=== PATIENT | female | born 1995 | race Caucasian/White ===

== ENCOUNTER 2018-12-22 10:27 | Inpatient (IN) | payer OTHER ==
[~2018-12-22] VITALS: Ht 167.6 cm; Wt 83.2 kg
--- NOTE | 2018-12-22 10:48 | HP ---
Date/Time of Note Date/Time of Note DATE: 12/22/18 TIME: 10:44 OB - History Hx of Present Free Text/Dictation 23 YO G1 with IUP at 34.2 weeks and EDC 01/31/2019. she reports contractions and vaginal bleeding. had intercourse last night. she denies LOF per vagina. NST is reassuring. Care: Good Care Ultrasounds: Normal mid trimester US Obstetrical Complications: None Medical Complications: None Past Family/Social History * Past Medical, Surgical, Family and Obstetric Histories reviewed from chart. OB Admission Exam Physical Exam HEENT: WNL Heart: Rhythm Normal Lungs: Clear, Equal Abdomen: WNL Extremities: Normal Reflexes: Normal OB Assessment/Plan Other Assessment: IUP at 34.2 weeks r/o PTL. no active bleeding on exam Other plan: admit for further observation no Tocolysis Betamethasone Amp GBS and urine culture SCD IV hydration BARON NOLASCO MD Dec 22, 2018 10:48
--- NOTE | 2018-12-22 10:48 | TRIAGE ---
OB Triage Datetime Report Generated by CPN: 12/22/2018 10:47 Datetime: 12/22/2018 10:41 Vaginal Exam Dilatation (cms): 2.0 Effacement (%): 60 Station: -2 Exam By: DR. NOLASCO Datetime: 12/22/2018 10:36 Stage of : OB Triage Assessment Type: Triage Maternal Assessment Level of Consciousness: Fully Conscious DTR's/Clonus: DTRs 2+; No Clonus Headache: Denies Blurred Vision: No Respiratory Effort: Unlabored; Regular Rhythm; Equal Expansion Breath Sounds, Left: Clear and Equal Breath Sounds, Right: Clear and Equal Nausea/Vomiting: Denies RUQ Epigastric Pain: Denies Lower Extremities Edema: None Degree: None Upper Extremities Edema: None Degree: None Facial Edema: None Temperature Route: Oral Fall Risk Assessment History of Falling: (0) No Secondary Diagnosis: (0) No Ambulatory Aid: (0) Bedrest/Nurse Assist IV Therapy: (0) No Gait: (0) Normal/Bedrest/Immobile Mental Status: (0) Oriented to Own Ability Fall Score: 0 Fall Risk Score Definition: No Risk: No action required Labor Evaluation Monitor Mode: External Heart Rate Monitor Mode: External US Pain Assessment Pain Scale: 4 Pain Presence: Intermittent Pain Type: Pressure Pain Location: Abdomen Pain Goal: 0 Datetime: 12/22/2018 10:35 Time of Arrival: 12/22/2018 10:23 EGA: 34.2 Arrived By: Ambulatory Arrived From: Home Chief Complaint: BLEEDING SPOTTING Movement: Present Contractions: Denies/Absent Rupture of Membranes: Denies Vaginal Bleeding: Scant Vaginal Discharge: Denies Recent Sexual Intercouse: Yes Abdominal Trauma: Not Applicable Patient Complaints: Other Time Provider Notified: 12/22/2018 10:45 Provider Notified: DR. NOLASCO
[2018-12-22 10:51] VITALS: BP 112/71; Ht 167.6 cm; Wt 83.2 kg
[2018-12-22] MEDS ORDERED: PREN1TAB71 PO (10:53)
[2018-12-22] MEDS ORDERED: AMPICILLIN 2 GM/NS (PMX) 100 ML IV ONE (11:00)
[2018-12-22] MEDS: LACTATED RINGER'S 1,000 ML IV SCH ×2 (13:06→21:08)
[2018-12-22] MEDS ORDERED: AMPICILLIN 1 GM/NS (PMX) 50 ML IV SCH (15:00)
[2018-12-22] MEDS: BETAMET NA PHOS/AC(6 MG/ML) 2 ML INJ SYG IM SCH (15:25)
[2018-12-22] MEDS: AMPICILLIN 1 GM/NS (PMX) 50 ML IV SCH (22:00)
[2018-12-23] MEDS: AMPICILLIN 1 GM/NS (PMX) 50 ML IV SCH ×6 (01:26→21:10)
[2018-12-23] MEDS: LACTATED RINGER'S 1,000 ML IV SCH ×3 (05:12→21:12)
[2018-12-23] MEDS ORDERED: PRENATAL VITAMIN PO SCH (09:00)
[2018-12-23] MEDS: BETAMET NA PHOS/AC(6 MG/ML) 2 ML INJ SYG IM SCH (15:40)
[2018-12-26] MEDS ORDERED: AMPICILLIN 2 GM/NS (PMX) 100 ML IVPB SCH (18:00)
== END 2018-12-23 22:00 | disposition home or self-care (01) | DRG 832 ==
LOC: OBT 10:27 → L-D 10:29 → OBT 10:45 → L-D 10:45
PROVIDERS: ADMIT Specialist; ATTEND Specialist
DX: O46.93 Antepartum hemorrhage, unspecified, third trimester (principal); O47.03 False labor before 37 completed weeks of gestation, third trimester; Z3A.34 34 weeks gestation of pregnancy
CPT/HCPCS: 76815; 80053; 81001; 85025; 87081; 87086; G0463; J0290; J0702; J7120

== ENCOUNTER 2018-12-26 10:21 | Inpatient (IN) | payer OTHER ==
[~2018-12-26] VITALS: Ht 167.6 cm; Wt 83.0 kg
[~2018-12-26 10:21] MED LIST: PREN1TAB71 PO
[2018-12-26 10:36] VITALS: BP 106/63; PULSE 113; RESP 18; Ht 167.6 cm; Wt 83.0 kg
--- NOTE | 2018-12-26 13:48 | TRIAGE ---
OB Triage Datetime Report Generated by CPN: 12/26/2018 13:47 Datetime: 12/26/2018 13:23 Stage of : OB Triage Datetime: 12/26/2018 12:06 Stage of : OB Triage Labor Evaluation Frequency: 4-5 Monitor Mode: External Duration (sec)2399: 60 Pattern: Normal: <= 5 Contractions in 10 Minutes Resting Tone [place]: Relaxed Heart Rate FHR Baseline Rate: 135 Variability: Moderate 6-25 bpm Accelerations: 15X15 Decelerations: None Category: Category I Pain Type: N/A Datetime: 12/26/2018 11:33 Stage of : OB Triage Labor Evaluation Frequency: 4-5 Monitor Mode: External Duration (sec)2399: 30-50 Pattern: Normal: <= 5 Contractions in 10 Minutes Resting Tone [place]: Relaxed Heart Rate FHR Baseline Rate: 135 Monitor Mode: External US Variability: Moderate 6-25 bpm Accelerations: 15X15 Decelerations: None Category: Category I Datetime: 12/26/2018 11:00 Labor Evaluation Frequency: 3-4 Monitor Mode: External Duration (sec)2399: 50-60 Quality: Mild Pattern: Normal: <= 5 Contractions in 10 Minutes Resting Tone [place]: Relaxed Heart Rate FHR Baseline Rate: 145 Monitor Mode: External US FHR Baseline Changes: No Baseline Change Variability: Moderate 6-25 bpm Accelerations: 15X15 Decelerations: None Category: Category I Datetime: 12/26/2018 10:58 Vaginal Exam Dilatation (cms): 2.0 Effacement (%): 60 Station: -2 Exam By: A DUVO Vaginal Bleeding: Scant Datetime: 12/26/2018 10:38 Assessment Type: Triage Maternal Assessment Level of Consciousness: Fully Conscious DTR's/Clonus: DTRs 2+; No Clonus Headache: Denies Blurred Vision: No Respiratory Effort: Unlabored; Regular Rhythm; Equal Expansion Breath Sounds, Left: Clear and Equal Breath Sounds, Right: Clear and Equal Nausea/Vomiting: Denies RUQ Epigastric Pain: Denies Lower Extremities Edema: None Upper Extremities Edema: None Facial Edema: None Fall Risk Assessment History of Falling: (0) No Secondary Diagnosis: (0) No Ambulatory Aid: (0) Bedrest/Nurse Assist IV Therapy: (0) No Gait: (0) Normal/Bedrest/Immobile Mental Status: (0) Oriented to Own Ability Fall Score: 0 Fall Risk Score Definition: No Risk: No action required Datetime: 12/26/2018 10:24 Time of Arrival: 12/26/2018 10:15 EGA: 34.6 Arrived By: Wheelchair Arrived From: Home Chief Complaint: vaginal bleeding Movement: Present Contractions: Denies/Absent Rupture of Membranes: Denies Vaginal Bleeding: Small Vaginal Discharge: Denies Recent Sexual Intercouse: Denies Abdominal Trauma: Not Applicable Patient Complaints: Other Time Provider Notified: 12/26/2018 10:47 Provider Notified: DR. JULIEN Initial Plan: NST BPP Datetime: 12/23/2018 22:10 Datetime: 12/23/2018 21:32 Vaginal Exam Dilatation (cms): 1.5 Exam By: Dr Julien Datetime: 12/23/2018 20:00 Labor Evaluation Frequency: 0 Monitor Mode: External Resting Tone [place]: Relaxed Heart Rate FHR Baseline Rate: 120 Monitor Mode: External US FHR Baseline Changes: No Baseline Change Variability: Moderate 6-25 bpm Accelerations: 15X15 Decelerations: None Category: Category I Datetime: 12/23/2018 19:28 Stage of : Antepartum Temperature Route: Oral Pain Assessment Pain Scale: 0 Pain Presence: None/Denies Pain Type: N/A Datetime: 12/23/2018 19:15 Assessment Type: Ongoing Assessment Maternal Assessment Level of Consciousness: Fully Conscious DTR's/Clonus: DTRs 2+; No Clonus Headache: Denies Blurred Vision: No Respiratory Effort: Unlabored; Regular Rhythm; Equal Expansion Breath Sounds, Left: Clear and Equal Breath Sounds, Right: Clear and Equal Nausea/Vomiting: Denies RUQ Epigastric Pain: Denies Lower Extremities Edema: None Upper Extremities Edema: None Facial Edema: None Fall Risk Assessment History of Falling: (0) No Secondary Diagnosis: (0) No Ambulatory Aid: (0) Bedrest/Nurse Assist IV Therapy: (20) Yes Gait: (0) Normal/Bedrest/Immobile Mental Status: (0) Oriented to Own Ability Fall Score: 20 Fall Risk Score Definition: No Risk: No action required Datetime: 12/23/2018 18:30 Monitor Mode: External Heart Rate FHR Baseline Rate: 125 Monitor Mode: External US FHR Baseline Changes: No Baseline Change Variability: Moderate 6-25 bpm Accelerations: 15X15 Decelerations: None Category: Category I Datetime: 12/23/2018 17:46 Comments: FHT audible at 145 BPM Datetime: 12/23/2018 17:00 Labor Evaluation Frequency: occasional X1 Monitor Mode: External Quality: Mild Pattern: Normal: <= 5 Contractions in 10 Minutes Resting Tone [place]: Relaxed Heart Rate FHR Baseline Rate: 130 Monitor Mode: External US FHR Baseline Changes: No Baseline Change Variability: Moderate 6-25 bpm Accelerations: 15X15 Decelerations: None Category: Category I Datetime: 12/23/2018 16:00 Monitor Mode: External Heart Rate FHR Baseline Rate: 125 Monitor Mode: External US FHR Baseline Changes: No Baseline Change Variability: Moderate 6-25 bpm Accelerations: 15X15 Decelerations: None Category: Category I Datetime: 12/23/2018 15:00 Labor Evaluation Frequency: occasional X1 Monitor Mode: External Duration (sec)2399: 80 Quality: Mild Pattern: Normal: <= 5 Contractions in 10 Minutes Resting Tone [place]: Relaxed Heart Rate FHR Baseline Rate: 130 Monitor Mode: External US FHR Baseline Changes: No Baseline Change Variability: Moderate 6-25 bpm Accelerations: 15X15 Decelerations: None Category: Category I Datetime: 12/23/2018 14:00 Labor Evaluation Frequency: 10 Monitor Mode: External Duration (sec)2399: 90-120 Quality: Mild Pattern: Normal: <= 5 Contractions in 10 Minutes Resting Tone [place]: Relaxed Heart Rate FHR Baseline Rate: 125 Monitor Mode: External US FHR Baseline Changes: No Baseline Change Variability: Moderate 6-25 bpm Accelerations: 15X15 Decelerations: None Category: Category I Datetime: 12/23/2018 13:00 Labor Evaluation Frequency: IRREGULAR X2 Monitor Mode: External Quality: Mild Pattern: Normal: <= 5 Contractions in 10 Minutes Resting Tone [place]: Relaxed Heart Rate FHR Baseline Rate: 130 Monitor Mode: External US FHR Baseline Changes: No Baseline Change Variability: Moderate 6-25 bpm Accelerations: 15X15 Decelerations: None Category: Category I Datetime: 12/23/2018 12:00 Monitor Mode: External Heart Rate FHR Baseline Rate: 120 Monitor Mode: External US FHR Baseline Changes: No Baseline Change Variability: Moderate 6-25 bpm Accelerations: 10X10 Decelerations: None Category: Category I Datetime: 12/23/2018 11:00 Monitor Mode: External Heart Rate FHR Baseline Rate: 115 Monitor Mode: External US FHR Baseline Changes: No Baseline Change Variability: Moderate 6-25 bpm Accelerations: 15X15 Decelerations: None Category: Category I Datetime: 12/23/2018 10:00 Labor Evaluation Frequency: irregular Monitor Mode: External Quality: Mild Pattern: Normal: <= 5 Contractions in 10 Minutes Resting Tone [place]: Relaxed Contraction Comments: pt feels UCs, notes only a couple felt Heart Rate FHR Baseline Rate: 135 Monitor Mode: External US FHR Baseline Changes: No Baseline Change Variability: Moderate 6-25 bpm Accelerations: 15X15 Decelerations: None Category: Category I Datetime: 12/23/2018 09:00 Monitor Mode: External Quality: Mild Pattern: Normal: <= 5 Contractions in 10 Minutes Resting Tone [place]: Relaxed Heart Rate FHR Baseline Rate: 125 Monitor Mode: External US FHR Baseline Changes: No Baseline Change Variability: Moderate 6-25 bpm Accelerations: 15X15 Decelerations: None Category: Category I Datetime: 12/23/2018 08:00 Monitor Mode: External Heart Rate FHR Baseline Rate: 115 Monitor Mode: External US FHR Baseline Changes: No Baseline Change Variability: Moderate 6-25 bpm Accelerations: 15X15 Decelerations: None Category: Category I Datetime: 12/23/2018 07:21 Stage of : Antepartum Datetime: 12/23/2018 07:17 Assessment Type: Ongoing Assessment Maternal Assessment Level of Consciousness: Fully Conscious DTR's/Clonus: DTRs 2+; No Clonus Headache: Denies Blurred Vision: No Respiratory Effort: Unlabored; Regular Rhythm; Equal Expansion Breath Sounds, Left: Clear and Equal Breath Sounds, Right: Clear and Equal Nausea/Vomiting: Denies RUQ Epigastric Pain: Denies Lower Extremities Edema: None Upper Extremities Edema: None Facial Edema: None Fall Risk Assessment History of Falling: (0) No Secondary Diagnosis: (0) No Ambulatory Aid: (0) Bedrest/Nurse Assist IV Therapy: (20) Yes Gait: (0) Normal/Bedrest/Immobile Mental Status: (0) Oriented to Own Ability Fall Score: 20 Fall Risk Score Definition: No Risk: No action required Datetime: 12/23/2018 06:58 Labor Evaluation Frequency: X1 Monitor Mode: External Duration (sec)2399: 50 Quality: Mild Resting Tone [place]: Relaxed Heart Rate FHR Baseline Rate: 120 Monitor Mode: External US Variability: Moderate 6-25 bpm Accelerations: 15X15 Decelerations: None Category: Category I Pain Presence: None/Denies Pain Type: N/A Datetime: 12/23/2018 06:15 Stage of : Antepartum Datetime: 12/23/2018 06:01 Stage of : Antepartum Temperature Route: Oral Datetime: 12/23/2018 06:00 Labor Evaluation Frequency: X5 Monitor Mode: External Duration (sec)2399: 50-90 Quality: Mild Resting Tone [place]: Relaxed Heart Rate FHR Baseline Rate: 120 Monitor Mode: External US Variability: Moderate 6-25 bpm Accelerations: 15X15 Decelerations: None Category: Category I Pain Presence: None/Denies Pain Type: N/A Pain Assessment Comments: PT DENIES ANY CRAMPING Datetime: 12/23/2018 05:12 Stage of : Antepartum Datetime: 12/23/2018 05:00 Labor Evaluation Frequency: X3 Monitor Mode: External Duration (sec)2399: 50-60 Quality: Mild Resting Tone [place]: Relaxed Contraction Comments: PT DENIES CRAMPING Heart Rate FHR Baseline Rate: 120 Monitor Mode: External US Variability: Moderate 6-25 bpm Accelerations: 15X15 Decelerations: None Category: Category I Pain Presence: None/Denies Pain Type: N/A Pain Assessment Comments: PT SLEEPING BUT EASILY AROUSED Datetime: 12/23/2018 04:18 Monitor Mode: External US Datetime: 12/23/2018 04:00 Labor Evaluation Frequency: X3 Monitor Mode: External Duration (sec)2399: 40-130 Quality: Mild Resting Tone [place]: Relaxed Heart Rate FHR Baseline Rate: 125 Monitor Mode: External US Variability: Moderate 6-25 bpm Accelerations: None Decelerations: None Category: Category I Pain Presence: None/Denies Pain Type: N/A Datetime: 12/23/2018 03:00 Labor Evaluation Frequency: NONE Monitor Mode: External Resting Tone [place]: Relaxed Heart Rate FHR Baseline Rate: 120 Monitor Mode: External US Variability: Moderate 6-25 bpm Accelerations: 15X15 Decelerations: None Category: Category I Pain Presence: None/Denies Pain Type: N/A Pain Assessment Comments: PT SLEEPING WITH EVEN UNLABORED BREATHING Datetime: 12/23/2018 02:00 Labor Evaluation Frequency: X5 Monitor Mode: External Duration (sec)2399: 70-130 Quality: Mild Resting Tone [place]: Relaxed Contraction Comments: PT DENIES FEELING UC'S Heart Rate FHR Baseline Rate: 120 Monitor Mode: External US Variability: Moderate 6-25 bpm Accelerations: 15X15 Decelerations: None Category: Category I Pain Presence: None/Denies Pain Type: N/A Datetime: 12/23/2018 01:26 Stage of : Antepartum Datetime: 12/23/2018 01:00 Labor Evaluation Frequency: X2 Monitor Mode: External Duration (sec)2399: 60 Quality: Mild Resting Tone [place]: Relaxed Heart Rate FHR Baseline Rate: 125 Variability: Moderate 6-25 bpm Comments: POOR QUlity trCING DUE TO PT'S SLEEPING POSITION AND ACTIVE FETUS. TRACING UNREADABLY. Datetime: 12/23/2018 00:35 Stage of : Antepartum Temperature Route: Oral Datetime: 12/23/2018 00:30 Monitor Mode: External US Comments: VERY ACTIVE FETUS Datetime: 12/23/2018 00:29 Comments: MONITORS STRAPS REMOVED AND BELLY BAND PLACED ON PT Datetime: 12/23/2018 00:00 Labor Evaluation Frequency: NONE Monitor Mode: External Resting Tone [place]: Relaxed Heart Rate FHR Baseline Rate: 125 Monitor Mode: External US Variability: Moderate 6-25 bpm Accelerations: 15X15 Decelerations: None Category: Category I Pain Presence: None/Denies Pain Type: N/A Datetime: 12/22/2018 23:00 Labor Evaluation Frequency: NONE Monitor Mode: External Resting Tone [place]: Relaxed Heart Rate FHR Baseline Rate: 125 Monitor Mode: External US Variability: Moderate 6-25 bpm Comments: LOC WITH PT SLEEPING ON HER RIGHT SIDE AND ACTIVE FETUS Pain Presence: None/Denies Pain Type: N/A Datetime: 12/22/2018 22:00 Labor Evaluation Frequency: NONE Monitor Mode: External Resting Tone [place]: Relaxed Heart Rate FHR Baseline Rate: 130 Monitor Mode: External US Variability: Moderate 6-25 bpm Accelerations: 15X15 Decelerations: None Category: Category I Pain Presence: None/Denies Pain Type: N/A Datetime: 12/22/2018 21:00 Labor Evaluation Frequency: NONE Monitor Mode: External Quality: Mild Resting Tone [place]: Relaxed Heart Rate FHR Baseline Rate: 135 Monitor Mode: External US Variability: Moderate 6-25 bpm Accelerations: 15X15 Decelerations: None Category: Category I Pain Presence: None/Denies Pain Type: N/A Datetime: 12/22/2018 20:00 Labor Evaluation Frequency: NONE Monitor Mode: External Resting Tone [place]: Relaxed Heart Rate FHR Baseline Rate: 130 Monitor Mode: External US Variability: Moderate 6-25 bpm Accelerations: 15X15 Decelerations: None Category: Category I Pain Presence: None/Denies Pain Type: N/A Datetime: 12/22/2018 19:17 Stage of : Antepartum Assessment Type: Ongoing Assessment Maternal Assessment Level of Consciousness: Fully Conscious DTR's/Clonus: DTRs 2+; No Clonus Headache: Denies Blurred Vision: No Respiratory Effort: Unlabored; Regular Rhythm; Equal Expansion Breath Sounds, Left: Clear and Equal Breath Sounds, Right: Clear and Equal Nausea/Vomiting: Denies RUQ Epigastric Pain: Denies Lower Extremities Edema: None Degree: None Upper Extremities Edema: None Degree: None Facial Edema: None Temperature Route: Oral Fall Risk Assessment History of Falling: (0) No Secondary Diagnosis: (0) No Ambulatory Aid: (0) Bedrest/Nurse Assist IV Therapy: (0) No Gait: (0) Normal/Bedrest/Immobile Mental Status: (0) Oriented to Own Ability Fall Score: 0 Fall Risk Score Definition: No Risk: No action required Monitor Mode: External Contraction Comments: PT STATES SHE FEELS A LITTLE CRAMPING Monitor Mode: External US Comments: PT STATES + FM Pain Assessment Pain Scale: 4 Pain Presence: Intermittent Pain Type: Cramping Pain Goal: 2 Pain Relief Measures: Comfort Measures (Annotations: REPOSITIONED) Membrane Status: Intact Vaginal Bleeding: None Datetime: 12/22/2018 19:13 Stage of : Antepartum Labor Evaluation Frequency: occassional Monitor Mode: External Quality: Mild Pattern: Normal: <= 5 Contractions in 10 Minutes Resting Tone [place]: Relaxed Heart Rate FHR Baseline Rate: 135 Monitor Mode: External US FHR Baseline Changes: No Baseline Change Variability: Moderate 6-25 bpm Accelerations: 15X15 Decelerations: None Datetime: 12/22/2018 18:25 Stage of : Antepartum Labor Evaluation Frequency: occassional Monitor Mode: External Quality: Mild Pattern: Normal: <= 5 Contractions in 10 Minutes Resting Tone [place]: Relaxed Heart Rate FHR Baseline Rate: 135 Monitor Mode: External US FHR Baseline Changes: No Baseline Change Variability: Moderate 6-25 bpm Accelerations: 15X15 Decelerations: None Category: Category I Pain Assessment Comments: no c/o of pain at this time Datetime: 12/22/2018 17:20 Stage of : Antepartum Labor Evaluation Frequency: occassional Monitor Mode: External Quality: Mild Pattern: Normal: <= 5 Contractions in 10 Minutes Resting Tone [place]: Relaxed Heart Rate FHR Baseline Rate: 125 Monitor Mode: External US FHR Baseline Changes: No Baseline Change Variability: Moderate 6-25 bpm Accelerations: 15X15 Decelerations: None Datetime: 12/22/2018 16:20 Stage of : Antepartum Labor Evaluation Frequency: occassional Monitor Mode: External Quality: Mild Pattern: Normal: <= 5 Contractions in 10 Minutes Resting Tone [place]: Relaxed Heart Rate FHR Baseline Rate: 125 Monitor Mode: External US FHR Baseline Changes: No Baseline Change Variability: Moderate 6-25 bpm Accelerations: 15X15 Decelerations: None Category: Category I Pain Assessment Pain Scale: 4 Pain Presence: Intermittent Pain Type: Cramping Pain Assessment Comments: pt sitting comfortably with no needs at this time Datetime: 12/22/2018 15:20 Stage of : Antepartum Labor Evaluation Frequency: occassional Monitor Mode: External Duration (sec)2399: 60-80 Quality: Mild Pattern: Normal: <= 5 Contractions in 10 Minutes Resting Tone [place]: Relaxed Heart Rate FHR Baseline Rate: 130 Monitor Mode: External US FHR Baseline Changes: No Baseline Change Variability: Moderate 6-25 bpm Accelerations: 15X15 Decelerations: None Category: Category I Datetime: 12/22/2018 14:20 Stage of : Antepartum Labor Evaluation Frequency: occassional Monitor Mode: External Duration (sec)2399: 60-80 Quality: Mild Pattern: Normal: <= 5 Contractions in 10 Minutes Resting Tone [place]: Relaxed Heart Rate FHR Baseline Rate: 125 Monitor Mode: External US FHR Baseline Changes: No Baseline Change Variability: Moderate 6-25 bpm Accelerations: 15X15 Decelerations: None Category: Category I Pain Assessment Comments: no c/o of pain at this time Datetime: 12/22/2018 13:20 Stage of : Antepartum Labor Evaluation Frequency: occassional Monitor Mode: External Duration (sec)2399: 60-80 Quality: Mild Pattern: Normal: <= 5 Contractions in 10 Minutes Resting Tone [place]: Relaxed Heart Rate FHR Baseline Rate: 125 Monitor Mode: External US FHR Baseline Changes: No Baseline Change Variability: Moderate 6-25 bpm Accelerations: 15X15 Decelerations: None Category: Category I Datetime: 12/22/2018 12:20 Stage of : Antepartum Labor Evaluation Frequency: 5-13 Monitor Mode: External Duration (sec)2399: 60-80 Quality: Mild Pattern: Normal: <= 5 Contractions in 10 Minutes Resting Tone [place]: Relaxed Heart Rate FHR Baseline Rate: 130 Monitor Mode: External US Variability: Moderate 6-25 bpm Accelerations: None Decelerations: None Category: Category I Datetime: 12/22/2018 11:21 Stage of : Antepartum Assessment Type: Admission Assessment Arrived By: Ambulatory Arrived From: Home Maternal Assessment Level of Consciousness: Fully Conscious DTR's/Clonus: DTRs 2+; No Clonus Headache: Denies Blurred Vision: No Respiratory Effort: Unlabored; Regular Rhythm; Equal Expansion Breath Sounds, Left: Clear and Equal Breath Sounds, Right: Clear and Equal Nausea/Vomiting: Denies RUQ Epigastric Pain: Denies Lower Extremities Edema: None Degree: None Upper Extremities Edema: None Degree: None Facial Edema: None Temperature Route: Oral Fall Risk Assessment History of Falling: (0) No Secondary Diagnosis: (0) No Ambulatory Aid: (0) Bedrest/Nurse Assist IV Therapy: (0) No Gait: (0) Normal/Bedrest/Immobile Mental Status: (0) Oriented to Own Ability Fall Score: 0 Fall Risk Score Definition: No Risk: No action required Monitor Mode: External Monitor Mode: External US Pain Assessment Pain Scale: 4 Pain Presence: Intermittent Pain Type: Cramping Pain Location: Abdomen Pain Goal: 0 Datetime: 12/22/2018 10:59 Comments: off monitor Datetime: 12/22/2018 10:36 Fall Score: 0 Fall Risk Score Definition: No Risk: No action required Datetime: 12/22/2018 10:35 EGA: 34.2
[2018-12-26] MEDS ORDERED: AMPICILLIN 2 GM/NS (PMX) 100 ML IV ONE (14:00)
[2018-12-26] MEDS ORDERED: CARBOPROST 250 MCG INJ IM PRN (14:00)
[2018-12-26] MEDS ORDERED: METHYLERGONOVINE 0.2 MG INJ IM PRN (14:00)
[2018-12-26] MEDS ORDERED: OXYTOCIN 30 UNITS/LR 500 ML IV PRN (14:00)
[2018-12-26] MEDS ORDERED: LIDOCAINE 1% (MPF) 30 ML INJ INJ PRN (14:00)
[2018-12-26] MEDS ORDERED: OXYTOCIN 30 UNITS/LR 500 ML IV SCH ×2 (14:00)
[2018-12-26] MEDS ORDERED: MISOPROSTOL 200 MCG TAB PR PRN (14:00)
[2018-12-26] MEDS: LACTATED RINGER'S 1,000 ML IV SCH (14:29)
--- NOTE | 2018-12-26 15:16 | HP ---
Date/Time of Note Date/Time of Note DATE: 12/26/18 TIME: 15:12 OB - History Hx of Present Free Text/Dictation December 26, 2018 Estimated Due Date: Feb 28, 2019 : 1 Para: 0 Therapeutic : 0 Other Concerns: 23-year-old G1, P0 with IUP at 34 weeks and 6 days and care with [facility] she presented with complaint of vaginal bleeding and cramps. Patient had recently admitted to the hospital and was discharged due to labor. She presented previously with vaginal bleeding and was noted to be 2 cm dilated. Status post full course of steroid. Completed steroids 3 days ago and discharged from the hospital. Symptoms recurred. She denies decreased movements or leaking of fluid. course was uncomplicated. Past Family/Social History * Past Medical, Surgical, Family and Obstetric Histories reviewed from chart. Blood Type: AB- Rubella: immune RPR/VDRL: Negative GBS Status: Unknown HBsAG: Negative OB Admission Exam Vital Signs Vital Signs Vital Signs Date Temp Pulse Resp B/P (MAP) Pulse Ox O2 O2 Flow FiO2 Time Delivery Rate 12/26/18 98.1 113 18 106/63 Room Air 10:36 (77) Physical Exam HEENT: WNL Lungs: Clear Abdomen: WNL Extremities: Normal Reflexes: Normal Cervical Dilatation: 2cm Membranes: Intact Heart Rate: 130's Accelerations: Accelerations Present Decelerations: Variable Decelerations Varibility: Moderate Contractions on Admission: < 5 Minutes Apart Intensity: Mild Last 72 hourBlood Glucose PROCEDURE: US OB biophysical profile. CLINICAL INDICATION: decreased movements, contractions TECHNIQUE: Multiple sonographic images of the pelvis were obtained. The images were reviewed on a PACS workstation. COMPARISON: No prior studies are available for comparison. FINDINGS: There is a single live intrauterine gestation. Cardiac activity is present with 137 beats per minute. There is a vertex presentation. The placenta is posterior. There is no evidence of placental abruption. JT = 17.9 cm. Biophysical profile: movement 2/2 tone 2/2. breathing 2/2 JT 2/2 Total 02/27 RPTAT: AA . IMPRESSION: Normal biophysical profile. . OB Assessment/Plan Other Assessment: IUP at 34 weeks and 6 days Vaginal bleeding and cramps Cannot rule out labor Admitted last week with the same symptoms status post observation and received 2 dose of steroid. Recently discharged from the hospital. 2 cm dilated and has cramps Cannot rule out labor. GBS unknown, vertex presentation Patient will be admitted for observation and close monitoring Consider GBS prophylaxis treatment We will continue monitor closely. No indication for tocolysis if she goes to labor Expectant management Plan of care discussed with patient ALLISON TURNER MD Dec 26, 2018 15:16
[2018-12-26] MEDS ORDERED: AMPICILLIN 1 GM/NS (PMX) 50 ML IV SCH (18:00)
[2018-12-26] MEDS: AMPICILLIN 2 GM/NS (PMX) 100 ML IVPB SCH (18:02)
[2018-12-27] MEDS: AMPICILLIN 2 GM/NS (PMX) 100 ML IVPB SCH ×4 (00:14→19:22)
[2018-12-27] MEDS: LACTATED RINGER'S 1,000 ML IV SCH ×4 (02:09→22:25)
--- NOTE | 2018-12-27 16:57 | QN ---
Documentation Comment she continued to have intermittent vaginal bleeding she denies painful contraction or LOF per vagina. she reports good FM Afebrile, VSS Abdomen is soft, not tender cervix is 2-3 cm, some BBOW NST is category one Assessment: IUP at 35 weeks Vaginal bleeding may be to labor Vs. placenta separation. Plan: will not use tocolytic observation BARON NOLASCO MD Dec 27, 2018 16:56
[2018-12-28] MEDS: AMPICILLIN 2 GM/NS (PMX) 100 ML IVPB SCH ×4 (01:12→19:50)
[2018-12-28] MEDS: LACTATED RINGER'S 1,000 ML IV SCH ×3 (08:28→20:55)
--- NOTE | 2018-12-28 15:55 | QN ---
Documentation Comment 23-year-old 1 para 0 at 35 weeks and 1 day of gestation with estimated date of delivery January 31, 2019 She was admitted for labor and vaginal bleeding Patient has received betamethasone x2 doses for lung maturity She currently complains of some pelvic pressure with pain level of 5 out of 10 and intermittent vaginal spotting Vital signs stable VS - Last 72 Hours, by Label Date Temp Pulse Resp B/P (MAP) Pulse Ox O2 O2 Flow FiO2 Time Delivery Rate 12/26/18 98.1 113 18 106/63 Room Air 10:36 (77) heart rate tracing category 1 Cervix 2-3 cm/70%/-1 per nurse PROCEDURE: US OB biophysical profile. CLINICAL INDICATION: decreased movements, contractions TECHNIQUE: Multiple sonographic images of the pelvis were obtained. The images were reviewed on a PACS workstation. COMPARISON: No prior studies are available for comparison. FINDINGS: There is a single live intrauterine gestation. Cardiac activity is present with 137 beats per minute. There is a vertex presentation. The placenta is posterior. There is no evidence of placental abruption. JT = 17.9 cm. Biophysical profile: movement 2/2 tone 2/2. breathing 2/2 JT 2/2 Total 02/27 RPTAT: AA . IMPRESSION: Normal biophysical profile. . .Zeyad Medeiros MD, Date Time Electronically viewed and signed by .Zeyad Medeiros MD, on 12/26/2018 11:26 .S/ CC: BARON NOLASCO MD [phone] Assessment and plan Continuous observation Continuous monitoring ISABELLE FARMER MD Dec 28, 2018 15:55
[2018-12-28] MEDS: ACETAMINOPHEN 325 MG TAB PO PRN (18:10)
--- NOTE | 2018-12-28 19:47 | PN ---
Date/Time of Note Date/Time of Note DATE: 12/28/18 TIME: 19:45 OB Subjective Subjective Subjective c/o leakege of fluid pain 10/30 OB Objective Heart: Rhythm Normal Abdomen: WNL Cervical Dilatation: 4cm Effacement: 75% Station: 0 Membranes: Ruptured Amniotic Fluid: Clear Heart Rate: 140's Contractions on Admission: < 5 Minutes Apart OB Assessment/Plan Reason for admission: active labor Plan: Other (IV Ampicilolin, pitocin as needed, epidural per patient request) AZALIA GANN MD Dec 28, 2018 19:47
[2018-12-28] MEDS ORDERED: OXYTOCIN 30 UNITS/LR 500 ML IV SCH (20:30)
[2018-12-28] MEDS ORDERED: FENTAnyl 2MCG/ML-ROPIV 0.2% 100 ML ONE (20:49)
[2018-12-28] MEDS ORDERED: ROPIVACAINE 0.2% 0 ML ONE (20:49)
--- NOTE | 2018-12-28 21:01 | PREAC ---
Date/Time of Note Date/Time of Note DATE: 12/28/18 TIME: 20:59 Anesthesia Eval and Record Evaluation Time Pre-Procedure Interview DATE: 12/28/18 TIME: 20:37 Age 23 Sex female NPO: 8 hrs Preoperative diagnosis iup @ 35 wks., , labor Planned procedure sumit Past Medical History Past Medical History: Includes : : (1), Para: (0), Gestational age: (35 wks.) Surgery & Anesthesia Issues No known issue Meds Anticoagulation: No Beta Kevin within 24 hr: No Reason Beta Kevin not given: Pt. not on B-Kevin Reported Medications Vit No.130/Iron/FA ( Tablet) 1 Each Tablet, 1 EACH PO 12/22/18 Current Medications Lactated Ringer's 1,000 ml @ 125 mls/hr Q8H IV Last administered on 12/28/18at 20:55; Admin Dose 125 MLS/HR; Start 12/26/18 at 13:48 Lidocaine (Xylocaine 1% (Mpf)) 30 ml ONCE PRN INJ .EPISIOTOMY; Start 12/26/18 at 14:00 Oxytocin/Lactated Ringer's 500 ml @ 500 mls/hr ONCE POST IV ; Start 12/26/18 at 14:00 Oxytocin/Lactated Ringer's 500 ml @ 125 mls/hr POST IV ; Start 12/26/18 at 14:00 Oxytocin/Lactated Ringer's 500 ml @ 0 mls/hr ONCE PRN IV .VAGINAL BLEEDING; Start 12/26/18 at 14:00 Methylergonovine Maleate (Methergine) 0.2 mg ONCE PRN IM .VAGINAL BLEEDING; Start 12/26/18 at 14:00 Carboprost Tromethamine (Hemabate) 250 mcg ONCE PRN IM .VAGINAL BLEEDING; Start 12/26/18 at 14:00 Misoprostol (Cytotec) 1,000 mcg ONCE PRN [place] .VAGINAL BLEEDING; Start 12/26/18 at 14:00 Ampicillin 100 ml @ 100 mls/hr Q6 IVPB Last administered on 12/28/18at 19:50; Admin Dose 100 MLS/HR; Start 12/26/18 at 18:00 Acetaminophen (Tylenol Tab) 650 mg Q6H PRN PO MILD PAIN(1-3)OR ELEVATED TEMP Last administered on 12/28/18at 18:10; Admin Dose 650 MG; Start 12/28/18 at 18:00 Oxytocin/Lactated Ringer's 500 ml @ 0 mls/hr Q0M IV ; Start 12/28/18 at 20:30 Meds reviewed: Yes Allergies Coded Allergies: No Known Drug Allergy (Verified Allergy, Unknown, 12/22/18) Allergies Reviewed: Yes Labs/Studies Labs Reviewed: Reviewed by anesthesiologist Result Diagram: 12/26/18 1430 test: Positive Studies: ECG (n/a), CXR (n/a) Pre-procedure Exam Last vitals Vital Signs Date Temp Pulse Resp B/P (MAP) Pulse Ox O2 O2 Flow FiO2 Time Delivery Rate 12/26/18 98.1 113 18 106/63 Room Air 10:36 (77) Airway: Adequate mouth opening, Adequate thyromental dist Mallampati: Mallampati II Teeth: Normal Lung: Normal Heart: Normal ASA Physical Status ASA physical status: 2 Emergency: E Planned Anesthetic Neuraxial: Epidural Planned Pain Management Epidural Pre-operative Attestations Prior to commencing anesthesia and surgery, the patient was re-evaluated, there was verification of: *The patient's identity *The results of appropriate recent lab work and preoperative vital signs *The above evaluation not changing prior to induction *Anesthetic plan, risk benefits, alternative and complications discussed with patient/family; questions answered; patient/family understands, accepts and wishes to proceed. Contract Consultant used JANET HARRINGTON MD Dec 28, 2018 21:01
[2018-12-28] MEDS ORDERED: NALBUPHINE HCL (10 MG/1 ML) INJ IV PRN (21:30)
[2018-12-28] MEDS ORDERED: ONDANSETRON 4 MG INJ IV PRN (21:30)
[2018-12-28] MEDS ORDERED: ZOLPIDEM 5 MG TAB PO PRN (21:30)
[2018-12-28] MEDS ORDERED: DIPHENHYDRAMINE 50 MG INJ IV PRN (21:30)
[2018-12-28] MEDS ORDERED: FENTAnyl 2MCG/ML-ROPIV 0.2% 100 ML BAG EPI SCH (21:30)
[2018-12-28] MEDS ORDERED: NALOXONE (0.4 MG/ML) INJ IV PRN (21:30)
[2018-12-29] MEDS: LACTATED RINGER'S 1,000 ML IV SCH (00:26)
[2018-12-29] MEDS ORDERED: OXYTOCIN 30 UNITS/LR 500 ML IV SCH (01:01)
--- NOTE | 2018-12-29 01:01 | LDN ---
Date/Time of Note Date/Time of Note DATE: 12/29/18 TIME: 00:56 Delivery Summary Patient placed in dorsal lithotomy position, prepped in sterille fashion. Pushing with contractionts NICU theam present Infant head delivered atraumatically Nouse and mouth sucction cord clump and cut Infant hand of waithing RN for evaluation Placenta delivered spontaneusly send to pathology 2 nd degree vaginal laceration repaired with 2 0chromic no bleeding EBL 300 cc count correct ice pack at perineum Weeks of Gestation 35v weeks Episiotomy: No Anesthesia type: Epidural Estimated blood loss: 300 Sponge & Needle done & correct: Yes All needle counts correct: Yes AZALIA GANN MD Dec 29, 2018 01:01
[2018-12-29] MEDS: AMPICILLIN 2 GM/NS (PMX) 100 ML IVPB SCH (01:03)
[2018-12-29] MEDS ORDERED: ACETAMINOPHEN 325 MG TAB PO PRN (01:30)
[2018-12-29] MEDS ORDERED: MISOPROSTOL 200 MCG TAB PR PRN (01:30)
[2018-12-29] MEDS ORDERED: OXYTOCIN 30 UNITS/LR 500 ML IV PRN (01:30)
[2018-12-29] MEDS ORDERED: CARBOPROST 250 MCG INJ IM PRN (01:30)
[2018-12-29] MEDS ORDERED: ONDANSETRON 4 MG TAB PO PRN (01:30)
[2018-12-29] MEDS ORDERED: LANOLIN HPA 1 PKT TOP PRN (01:30)
[2018-12-29] MEDS ORDERED: NACL 0.9% 3 ML SYG IV SCH (01:30)
[2018-12-29] MEDS ORDERED: METHYLERGONOVINE 0.2 MG INJ IM PRN (01:30)
[2018-12-29] MEDS: ACETAMINOPHEN 325 MG TAB PO PRN (02:39)
[2018-12-29 03:00] VITALS: BP 119/67; PULSE 62; RESP 21
[2018-12-29 04:07] VITALS: BP 119/58; PULSE 77; RESP 17
[2018-12-29] MEDS: IBUPROFEN 800 MG TAB PO SCH ×3 (06:26→18:11)
--- NOTE | 2018-12-29 06:39 | PAC ---
Date/Time of Note Date/Time of Note DATE: 12/29/18 TIME: 06:39 Post-Anesthesia Notes Post-Anesthesia Note Last documented vital signs Vital Signs Date Temp Pulse Resp B/P (MAP) Pulse Ox O2 O2 Flow FiO2 Time Delivery Rate 12/29/18 98.4 77 17 119/58 Room Air 04:07 (78) Activity: WNL Respiratory function: WNL Cardiovascular function: WNL Mental status: Baseline Pain reasonably controlled: Yes Hydration appropriate: Yes Nausea/Vomiting absent: Yes JANET HARRINGTON MD Dec 29, 2018 06:39
[2018-12-29 08:00] VITALS: BP 115/60; PULSE 66; RESP 16
[2018-12-29 12:12] VITALS: BP 114/76; PULSE 66; RESP 18
--- NOTE | 2018-12-29 12:37 | QN ---
Documentation Comment PPD#1 is stable afebrile tolerates diet No VB +BM +voids VS stable Gen NAD Abd soft NT ND Genitalia No blood at perineum --->Discharge Home tomorrow SUSANA ROSE M.D. Dec 29, 2018 12:37
[2018-12-29 19:50] VITALS: BP 102/56; PULSE 71; RESP 20
[2018-12-30 04:20] VITALS: BP 104/53; PULSE 77; RESP 21
[2018-12-30] MEDS: IBUPROFEN 800 MG TAB PO SCH ×5 (04:38→23:34)
[2018-12-30] MEDS: ACETAMINOPHEN 325 MG TAB PO PRN (05:52)
[2018-12-30 08:00] VITALS: BP 98/53; PULSE 86; RESP 18
--- NOTE | 2018-12-30 12:59 | QN ---
Documentation Comment day #1 Status post Patient stable and afebrile Vital signs stable VS - Last 72 Hours, by Label Date Temp Pulse Resp B/P (MAP) Pulse Ox O2 O2 Flow FiO2 Time Delivery Rate 12/30/18 98.3 86 18 98/53 (68) 08:00 12/30/18 98.5 77 21 104/53 Room Air 04:20 (70) 12/29/18 98.1 71 20 102/56 Room Air 19:50 (71) 12/29/18 98.2 66 18 114/76 Room Air 12:12 (89) 12/29/18 98.4 66 16 115/60 Room Air 08:00 (78) 12/29/18 98.4 77 17 119/58 Room Air 04:07 (78) 12/29/18 98.3 62 21 119/67 Room Air 03:00 (84) Hematology - 72 Hrs Test 12/29/18 06:21 12/30/18 09:11 Hematocrit 29.3 % (37.0-47.0) L 31.0 % (37.0-47.0) L Hemoglobin 9.6 g/dl (12.0-16.0) L 9.9 g/dl (12.0-16.0) L Mean Corpuscular 28.1 pg (29.0-33.0) L 27.7 pg (29.0-33.0) L Hemoglobin Mean Corpuscular 32.8 g/dl (32.0-37.0) 31.9 g/dl (32.0-37.0) L Hemoglobin Concent Mean Corpuscular Volume 85.7 fl (82.0-101.0) 86.8 fl (82.0-101.0) Mean Platelet Volume 10.0 fl (7.4-10.4) 10.1 fl (7.4-10.4) Platelet Count 144 10^3/UL (140-415) # 169 10^3/UL (140-415) Red Blood Count 3.42 10^6/ul (4.20-5.40) 3.57 10^6/ul (4.20-5.40) L L Red Cell Distribution 13.0 % (11.5-14.5) 13.2 % (11.5-14.5) Width White Blood Count 15.7 10^3/ul (4.8-10.8) 11.6 10^3/ul (4.8-10.8) #H #H Abdomen soft, fundus firm Perineum intact Extremities nontender Assessment and plan Patient stable and doing well Continue with routine care ISABELLE FARMER MD Dec 30, 2018 12:59
[2018-12-30 15:49] VITALS: BP 101/58; PULSE 76; RESP 18
[2018-12-30 16:00] VITALS: BP 115/58; PULSE 76; RESP 20
[2018-12-30] MEDS ORDERED: SENNA TAB PO PRN (17:30)
[2018-12-30 20:45] VITALS: BP 99/54; PULSE 76; RESP 19
[2018-12-31 03:50] VITALS: BP 107/64; PULSE 63; RESP 19
[2018-12-31] MEDS: IBUPROFEN 800 MG TAB PO SCH ×2 (05:41→11:54)
[2018-12-31 08:00] VITALS: BP 104/56; PULSE 74; RESP 18
[2018-12-31 12:05] VITALS: BP 111/62; PULSE 77; RESP 16
--- NOTE | 2018-12-31 15:18 | DS ---
Date/Time of Note Date/Time of Note DATE: 12/31/18 TIME: 15:18 Obstetrical Discharge Record Final Diagnosis Final Diagnosis: delivered Vaginal Delivery Obstetrical Delivery: Spontaneous Complications Augmentation: No Induction: No Rupture of Membranes: No Condition on Discharge Physical Assessment Voiding: Yes Bowel Movement: Yes Breast: Soft, non-tender, Filling Fundus: Firm Abdomen and Incision: soft, not tender Calf Tenderness: No Patient Condition: Good BARON NOLASCO MD Dec 31, 2018 15:18
--- NOTE | 2019-01-01 16:22 | DELSUM ---
Delivery Summary A-C Datetime Report Generated by CPN: 01/01/2019 16:22 DELIVERY PERSONNEL Proofer: Ethel Haynes MATERNAL INFORMATION Delivery Anesthesia: Epidural Medications in Delivery: LR 500 + 30 units pitocin Delivery QBL (ml): 300 Placenta Cultured: No Maternal Complications: None RN Comments: On delivery: Daisy Chávez Marilen Loredo LABOR SUMMARY EDC: 01/31/2019 00:00 No. Babies in Womb: 1 Attempted: No Labor Anesthesia: Epidural LABOR INFORMATION Reason for Induction: Not Applicable Complete Dilatation: 12/29/2018 00:14 Other Ripening Agents: N/A Oxytocin: N/A Group B Beta Strep: Not Done Antibiotics # of Doses: 9 Antibiotics Time of Last Dose: 12/28/2018 19:50 Steroids Given: Full Course; >24Hs before Delivery Reason Steroids Not Administered: Not Applicable MEMBRANES Membranes Rupture Method: Artificial Rupture of Membranes: 12/28/2018 19:41 Length of Rupture (hr): 4.95 Amniotic Fluid Color: Clear Amniotic Fluid Amount: Large Amniotic Fluid Odor: Normal STAGES OF LABOR Stage 2 hr: 0 Stage 2 min: 24 Stage 3 hr: 0 Stage 3 min: 2 VAGINAL DELIVERY Episiotomy: None Laceration Extension: Second Degree Laceration Type: Vaginal Laceration Repair: Yes Initial Vag Sponge Count: 10 Final Vag Sponge Count: 10 Initial Vag Sharps Count: 4 Final Vag Sharps Count: 4 Sponge Count Correct: Yes; Vaginal Sweep Performed Sharps Count Correct: Yes BABY A INFORMATION Delivery Date/Time: 12/29/2018 00:38 Method of Delivery: Vaginal Born in Route : No : N/A Forceps: N/A Vacuum Extraction: N/A Shoulder Dystocia : No SHOULDER DYSTOCIA BABY A Delivery Date/Time: 12/29/2018 00:38 PRESENTATION/POSITION BABY A Presentation: Cephalic Cephalic Presentation: Vertex Vertex Position: Left Occipital Anterior Breech Presentation: N/A PLACENTA INFORMATION BABY A Placenta Delivery Time : 12/29/2018 00:40 Placenta Method of Delivery: Spontaneous Placenta Status: Delivered SCORES BABY A Heart Rate 1 min: >100 bpm Resp Effort 1 min: Good Cry Reflex Irritability 1 min: Cough/Sneeze/Pulls Away Muscle Tone 1 min: Active Motion Color 1 min: Blue/Pale Resuscitation Effort 1 min: Tactile Stimulation SCORE 1 MIN: 8 Heart Rate 5 min: >100 bpm Resp Effort 5 min: Good Cry Reflex Irritability 5 min: Cough/Sneeze/Pulls Away Muscle Tone 5 min: Active Motion Color 5 min: Body [place], Extremit Blue Resuscitation Effort 5 min: Tactile Stimulation SCORE 5 MIN: 9 INFORMATION BABY A Gestational Age at Delivery: 35.2 Gestational Status: Late - 34- 36.6 Weeks Infant Outcome : Liveborn Condition : Stable Sex: Male IDENTIFICATION/MEDS BABY A ID Band Number: [id number] ID Band Location: Right Leg; Left Arm Sensor Applied: Yes Sensor Number: [id number] Sensor Location : Cord Clamp Vitamin K Given : Not Given Erythromycin Given: Not Given WEIGHT/LENGTH BABY A Infant Birthweight (gm): 2680 Infant Weight (lb): 5 Weight (oz): 15 Infant Length (in): 18.25 Infant Length (cm): 46.36 CORD INFORMATION BABY A No. Cord Vessels: 3 Nuchal Cord : N/A Nuchal Cord- Other: 0 True Knot: 0 Cord Blood Taken: Yes Banking/Donate Info: No Infant Suction: Mouth; Nose ASSESSMENT BABY A Complications: None Physical Findings at Delivery: Within Normal Limits Infant Respirations: Appears Normal Senior Revenue Accountant/ALS Called : Yes Care By: Kyler Santos, Daisy Monsalve, Aleida Hodge, Transferred To: Remains with Mother
== END 2018-12-31 16:20 | disposition home or self-care (01) | DRG 806 ==
LOC: OBT 10:21 → L-D 10:23 → OBT 13:40 → L-D 12-28 19:21 → PP1 12-29 02:50
PROVIDERS: ADMIT Specialist; ATTEND Specialist
PROC: 10E0XZZ Delivery of Products of Conception, External Approach (ICD-10-PCS; principal; 2018-12-29)
PROC: 0KQM0ZZ Repair Perineum Muscle, Open Approach (ICD-10-PCS; 2018-12-29)
DX: O60.13X0 Preterm labor second trimester with preterm delivery third trimester, not applicable or unspecified (principal); O71.4 Obstetric high vaginal laceration alone; O36.8130 Decreased fetal movements, third trimester, not applicable or unspecified; Z3A.34 34 weeks gestation of pregnancy; Z37.0 Single live birth
CPT/HCPCS: 62322; 76818; 85025; 85610; 85730; 86592; 86850; 86885; 86900; 86901; 87340; 88307; 99464; G0463; J0290; J2405; J2590; J2790; J2795; J3010; J7120